=== PATIENT | female | born 1995 | race African-American/Black ===

== ENCOUNTER 2017-07-05 11:04 | Emergency (ER) | payer MEDICAID ==
[~2017-07-05] VITALS: Ht 162.6 cm; Wt 116.6 kg
[2017-07-05 11:07] VITALS: BP 129/83
[2017-07-05] MEDS ORDERED: LIDOCAINE 1%, 20ML ONE (11:21)
[2017-07-05] MEDS ORDERED: LIDOCAINE 1%, 20ML INFIL ONE (11:30)
[2017-07-05] MEDS ORDERED: BACITRACIN ZINC OINT 500U/GM, 0.9 GM ONE (12:44)
== END 2017-07-05 13:02 | disposition home or self-care (01) ==
LOC: ED 12:45
DX: L03.032 Cellulitis of left toe (principal)
CPT/HCPCS: 10060

== ENCOUNTER 2017-07-23 23:40 | Emergency (ER) | payer MEDICAID ==
[~2017-07-23] VITALS: Ht 162.6 cm; Wt 119.5 kg
[2017-07-23 23:42] VITALS: BP 138/85
[2017-07-24] MEDS ORDERED: CEPH-376 PO (00:19)
== END 2017-07-24 00:42 | disposition home or self-care (01) ==
LOC: ED 07-24 00:36
DX: L73.9 Follicular disorder, unspecified (principal)
CPT/HCPCS: 82962; 99283

== ENCOUNTER 2019-01-27 13:49 | Emergency (ER) | payer MEDICAID ==
[~2019-01-27] VITALS: Ht 162.6 cm; Wt 114.2 kg
[~2019-01-27 13:49] MED LIST: CEPH-376 PO
[2019-01-27 13:55] VITALS: BP 120/68
[2019-01-27 14:58] LABS: BASOPHILS # (AUTO) 0.03 x10^3/uL (0-0.1); BASOPHILS % (AUTO) 0 % (0-1); EOSINOPHILS # (AUTO) 0.09 x10^3/uL (0-0.4); EOSINOPHILS % (AUTO) 1 % (1-7); LYMPHOCYTES # (AUTO) 2.24 x10^3/uL (1-3.4); LYMPHOCYTES % (AUTO) 34 % (22-44); MD NO; MEAN CORPUSCULAR HEMOGLOBIN 27.1 pg (27.0-34.8); MEAN CORPUSCULAR VOLUME 84.6 fL (80-100); MEAN PLATELET VOLUME 8.2 fL (7.4-10.4); MONOCYTES # (AUTO) 0.33 x10^3/uL (0.2-0.8); MONOCYTES % (AUTO) 5 % (2-9); NEUTROPHILS # (AUTO) 3.89 x10^3/uL (1.8-6.8); NEUTROPHILS % (AUTO) 59 % (42-75); PLATELET COUNT 262 x10^3/uL (130-400); RED CELL DISTRIBUTION WIDTH 13.8 % (9.6-15.2)
[2019-01-27 15:11] LABS: ALBUMIN 3.7 g/dL (3.4-5.0); ANION GAP 5 mmol/L (5-15); CALCIUM 9.1 mg/dL (8.5-10.1); CHLORIDE 107 mmol/L (98-107); CREATININE 0.93 mg/dL (0.55-1.02)
--- NOTE | 2019-01-27 15:27 | NUR ---
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
[2019-01-27] MEDS ORDERED: ALBUTEROL/IPRATROPIUM 2.5MG/0.5MG, 3 ML NPPB SCH (15:30)
[2019-01-27] MEDS ORDERED: ALBUTEROL/IPRATROPIUM 2.5MG/0.5MG, 3 ML ONE ×2 (15:49)
--- NOTE | 2019-01-27 15:49 | NUR ---
MD ASSESSMENT COMPLETED AT THIS TIME. PT AMBULATED TO RESTROOM TO OBTAIN A URINE SAMPLE.
--- NOTE | 2019-01-27 16:04 | NUR ---
URINE WALKED TO LAB FOR ANALYSIS
[2019-01-27 16:41] LABS: MICROSCOPIC INDICATED
[2019-01-27 16:46] LABS: CULTURE INDICATED? YES
== END 2019-01-27 17:29 | disposition left against medical advice (07) ==
LOC: ED 17:10
DX: R10.30 Lower abdominal pain, unspecified (principal); N93.9 Abnormal uterine and vaginal bleeding, unspecified; F17.200 Nicotine dependence, unspecified, uncomplicated
CPT/HCPCS: 36415; 80048; 81001; 82040; 84703; 85025; 87086; 99283

== ENCOUNTER 2019-01-28 09:43 | Emergency (ER) | payer MEDICAID ==
[~2019-01-28] VITALS: Ht 162.6 cm; Wt 114.0 kg
--- NOTE | 2019-01-28 09:58 | NUR ---
PT AMBULATORY TO ROOM 15 W/ C/O PELVIC PAIN BILAT. PT STATES SHE THOUGHT SHE WAS BUT HAD NEGATIVE TEST. PT STATES SHE WAS SEEN HERE YESTERDAY BUT HAD TO LEAVE BEFORE BEING ABLE TO GET US COMPLETED. PT RESTING ON KERVIN. CORI. WARM BLANKET PROVIDED.
--- NOTE | 2019-01-28 11:05 | NUR ---
pt resting on gurney. nadn. butt.
[2019-01-28 11:07] LABS: MICROSCOPIC AUTO
[2019-01-28 11:09] LABS: CULTURE INDICATED? NO
--- NOTE | 2019-01-28 11:17 | NUR ---
PT CHART REVIEWED AND PLACED FOR RECHECK.
[2019-01-28] MEDS ORDERED: ONDANSETRON ODT 4 MG PO ONE (11:30)
[2019-01-28] MEDS ORDERED: KETOROLAC 30 MG/1 ML IM ONE (11:30)
[2019-01-28] MEDS ORDERED: HYDROmorphone 1 MG/ML, 1ML INJ IM PRN (11:30)
[2019-01-28] MEDS ORDERED: ONDANSETRON ODT 4 MG ONE (11:32)
[2019-01-28] MEDS ORDERED: KETOROLAC 30 MG/1 ML ONE (11:32)
--- NOTE | 2019-01-28 11:48 | NUR ---
PT TAKEN TO US IN STABLE CONDITION.
[2019-01-28 11:52] VITALS: BP 108/40
--- NOTE | 2019-01-28 12:51 | NUR ---
PT RESTING ON GURNEY. NADN. COTTON.
== END 2019-01-28 13:15 | disposition home or self-care (01) ==
LOC: ED 11:56
DX: R10.32 Left lower quadrant pain (principal); F17.200 Nicotine dependence, unspecified, uncomplicated
CPT/HCPCS: 74176; 76830; 81001; 99284; Q0162

== ENCOUNTER 2020-07-30 11:16 | Outpatient (CLI) | payer MEDICAID ==
[~2020-07-30] VITALS: Ht 162.6 cm; Wt 120.9 kg
[2020-07-30 12:00] LABS: BASOPHILS % (AUTO) 0 % (0-1); EOSINOPHILS % (AUTO) 1 % (1-7); LYMPHOCYTES % (AUTO) 25 % (22-44); MEAN CORPUSCULAR HEMOGLOBIN 27.3 pg (27.0-34.8); MEAN CORPUSCULAR HGB CONC 32.9 g/dL (32.4-35.8); MEAN PLATELET VOLUME 8.5 fL (7.4-10.4); MONOCYTES % (AUTO) 5 % (2-9); NEUTROPHILS % (AUTO) 69 % (42-75); PLATELET COUNT 213 x10^3/uL (130-400); RED BLOOD COUNT 3.89 x10^6/uL (3.82-5.3); RED CELL DISTRIBUTION WIDTH 13.1 % (9.6-15.2)
[2020-07-30 12:03] LABS: MD NO
[2020-07-30 12:09] LABS: ALANINE AMINOTRANSFERASE 20 U/L (12-78); ALBUMIN 2.6 g/dL (3.4-5.0); ANION GAP 6 mmol/L (5-15); CALCIUM 8.6 mg/dL (8.5-10.1); CHLORIDE 110 mmol/L (98-107); CREATININE 0.57 mg/dL (0.55-1.02)
[2020-07-30 12:10] LABS: MICROSCOPIC INDICATED
[2020-07-30 12:12] LABS: ALKALINE PHOSPHATASE 89 U/L (45-117); BILIRUBIN,TOTAL 0.2 mg/dL (0.2-1.0); TOTAL PROTEIN 6.2 g/dL (6.4-8.2)
[2020-07-30] MEDS ORDERED: PREN1TAB10 PO (13:32)
== END 2020-07-30 13:46 | disposition home or self-care (01) ==
LOC: LDOP 11:16
PROVIDERS: ATTEND Obstetrics & Gynecology Maternal & Fetal Medicine
DX: O26.892 Other specified pregnancy related conditions, second trimester (principal); R10.9 Unspecified abdominal pain; Z3A.27 27 weeks gestation of pregnancy
CPT/HCPCS: 36415; 76770; 80053; 81001; 85025; 87086; 99211; G0463

== ENCOUNTER 2020-10-21 12:47 | Outpatient (CLI) | payer MEDICAID ==
[~2020-10-21] VITALS: Ht 170.2 cm; Wt 125.0 kg
[~2020-10-21 12:47] MED LIST changes: +PREN1TAB10 PO
== END 2020-10-21 13:44 | disposition home or self-care (01) ==
LOC: LDOP 12:47
PROVIDERS: ATTEND Obstetrics & Gynecology Maternal & Fetal Medicine
DX: O26.893 Other specified pregnancy related conditions, third trimester (principal); R10.9 Unspecified abdominal pain; Z3A.39 39 weeks gestation of pregnancy
CPT/HCPCS: 59025

== ENCOUNTER 2020-10-26 09:09 | Inpatient (IN) | payer MEDICAID ==
[~2020-10-26] VITALS: Ht 162.6 cm; Wt 124.1 kg
[2020-10-26] MEDS ORDERED: CALCIUM CARBONATE 500 MG TAB.CHEW PO PRN (17:00)
[2020-10-26] MEDS ORDERED: FENTANYL PF 100 MCG/2ML IVPush PRN (17:00)
[2020-10-26] MEDS ORDERED: ONDANSETRON 2MG/ML, 2ML IVPush PRN (17:00)
[2020-10-26] MEDS ORDERED: TERBUTALINE 1 MG/ML, 1ML IVPush PRN (17:00)
[2020-10-26] MEDS ORDERED: OXYTOCIN 30U/ 0.9% NaCL 500ML 500 ML IV PRN (17:00)
[2020-10-26] MEDS ORDERED: FENTANYL PF 100 MCG/2ML IV PRN (17:00)
[2020-10-26] MEDS ORDERED: OXYTOCIN 30U/ 0.9% NaCL 500ML 500 ML IV ONE (17:00)
[2020-10-26] MEDS ORDERED: PLEASE ENTER HEIGHT AND WEIGHT MC SCH (17:00)
[2020-10-26] MEDS ORDERED: D5%-LACTATED RINGERS 1,000 ML IV SCH (17:00)
[2020-10-26] MEDS ORDERED: TERBUTALINE 1 MG/ML, 1ML SQ PRN (17:00)
[2020-10-26] MEDS ORDERED: PENICILLIN GK 5,000,000 UNITS in DEXTROSE 5% 100 ML IVPB ONE (17:00)
[2020-10-26] MEDS ORDERED: LACTATED RINGERS 1,000 ML IV SCH ×2 (17:00→19:30)
[2020-10-26 17:11] LABS: BASOPHILS % (AUTO) 0 % (0-1); EOSINOPHILS % (AUTO) 1 % (1-7); LYMPHOCYTES % (AUTO) 26 % (22-44); MEAN CORPUSCULAR HEMOGLOBIN 26.7 pg (27.0-34.8); MEAN CORPUSCULAR HGB CONC 32.7 g/dL (32.4-35.8); MEAN PLATELET VOLUME 9.3 fL (7.4-10.4); MONOCYTES % (AUTO) 8 % (2-9); NEUTROPHILS % (AUTO) 65 % (42-75); PLATELET COUNT 183 x10^3/uL (130-400); RED BLOOD COUNT 4.35 x10^6/uL (3.82-5.3); RED CELL DISTRIBUTION WIDTH 14.7 % (9.6-15.2)
[2020-10-26 17:13] LABS: MD NO
[2020-10-26] MEDS ORDERED: NEWBORN KIT ONE (18:51)
[2020-10-26] MEDS ORDERED: FENTANYL/BUPIV./NS/PF 250 ML EPIDCONT ONE (19:07)
[2020-10-26] MEDS ORDERED: BUPIVACAINE 0.25% ONE (19:07)
[2020-10-26] MEDS ORDERED: FENTANYL/BUPIV./NS/PF 250 ML EPIDCONT SCH (19:30)
[2020-10-26] MEDS ORDERED: EPHEDRINE 50 MG/ML, 1ML IVPush PRN (19:30)
[2020-10-26] MEDS ORDERED: LACTATED RINGERS 1,000 ML IVBOLUS PRN (19:30)
[2020-10-26] MEDS ORDERED: PENICILLIN GK 2,500,000 UNITS in DEXTROSE 5% 100 ML IVPB SCH (21:00)
[2020-10-27] MEDS ORDERED: MISOPROSTOL 200 MCG TABLET ONE (00:50)
[2020-10-27] MEDS ORDERED: LIDOCAINE 1%, 20ML ONE (00:50)
[2020-10-27] MEDS ORDERED: MISOPROSTOL 200 MCG TABLET PR PRN (02:30)
[2020-10-27] MEDS ORDERED: OXYcodone/APAP 5/325MG TABLET PO PRN (02:30)
[2020-10-27] MEDS ORDERED: BISACODYL 10 MG SUPP PR PRN (02:30)
[2020-10-27] MEDS ORDERED: ACETAMINOPHEN 325 MG TABLET PO PRN (02:30)
[2020-10-27] MEDS ORDERED: SIMETHICONE 80 MG CHEW TAB PO PRN (02:30)
[2020-10-27] MEDS ORDERED: METHYLERGONOVINE 0.2 MG/ML IM PRN (02:30)
[2020-10-27] MEDS ORDERED: ONDANSETRON 2MG/ML, 2ML IV PRN (02:30)
[2020-10-27] MEDS: OXYTOCIN 30U/ 0.9% NaCL 500ML 500 ML IV SCH ×3 (02:30→22:30)
[2020-10-27] MEDS ORDERED: CARBOPROST TROMETHAMINE 250 MCG/ML, 1ML IM PRN (02:30)
[2020-10-27] MEDS ORDERED: OXYcodone IR 5MG TABLET PO PRN (02:30)
[2020-10-27 03:55] VITALS: BP 130/84
[2020-10-27] MEDS: PRENATAL VIT/IRON/FA 1 EACH TABLET PO SCH (07:52)
[2020-10-27] MEDS: DOCUSATE 100 MG CAPSULE PO PRN ×2 (07:52→19:00)
[2020-10-27 08:00] VITALS: BP 116/70
[2020-10-27 09:56] LABS: BASOPHILS % (AUTO) 0 % (0-1); EOSINOPHILS % (AUTO) 0 % (1-7); LYMPHOCYTES % (AUTO) 18 % (22-44); MEAN CORPUSCULAR HEMOGLOBIN 26.3 pg (27.0-34.8); MEAN CORPUSCULAR HGB CONC 32.6 g/dL (32.4-35.8); MEAN PLATELET VOLUME 9.1 fL (7.4-10.4); MONOCYTES % (AUTO) 7 % (2-9); NEUTROPHILS % (AUTO) 75 % (42-75); PLATELET COUNT 155 x10^3/uL (130-400); RED CELL DISTRIBUTION WIDTH 14.3 % (9.6-15.2)
[2020-10-27 09:58] LABS: MD NO
[2020-10-27 12:50] VITALS: BP 124/75
[2020-10-27 15:55] VITALS: BP 131/71
[2020-10-27] MEDS: IBUPROFEN 600 MG TABLET PO PRN (19:00)
[2020-10-27 19:35] VITALS: BP 102/64
[2020-10-28 00:15] VITALS: BP 117/69
[2020-10-28 07:30] VITALS: BP 116/65
[2020-10-28] MEDS: IBUPROFEN 600 MG TABLET PO PRN ×2 (07:43→14:48)
[2020-10-28] MEDS: DOCUSATE 100 MG CAPSULE PO PRN (07:43)
[2020-10-28] MEDS: PRENATAL VIT/IRON/FA 1 EACH TABLET PO SCH (07:43)
[2020-10-28] MEDS: OXYTOCIN 30U/ 0.9% NaCL 500ML 500 ML IV SCH ×2 (08:30→14:07)
[2020-10-28] MEDS ORDERED: IBUP-1222 PO (14:06)
[2020-10-28] MEDS ORDERED: DOCU-131 PO (14:06)
[2020-10-28 19:25] VITALS: BP 118/78
== END 2020-10-28 20:00 | disposition home or self-care (01) | DRG 807 ==
LOC: LDIP 15:51 → 2NW 10-27 03:30
PROVIDERS: ADMIT Obstetrics & Gynecology Maternal & Fetal Medicine; ATTEND Obstetrics & Gynecology Maternal & Fetal Medicine
PROC: 10E0XZZ Delivery of Products of Conception, External Approach (ICD-10-PCS; principal; 2020-10-27)
PROC: 10907ZC Drainage of Amniotic Fluid, Therapeutic from Products of Conception, Via Natural or Artificial Opening (ICD-10-PCS; 2020-10-27)
PROC: 3E0R3BZ Introduction of Anesthetic Agent into Spinal Canal, Percutaneous Approach (ICD-10-PCS; 2020-10-27)
PROC: 00HU33Z Insertion of Infusion Device into Spinal Canal, Percutaneous Approach (ICD-10-PCS; 2020-10-27)
PROC: 3E033VJ Introduction of Other Hormone into Peripheral Vein, Percutaneous Approach (ICD-10-PCS; 2020-10-27)
DX: O99.824 Streptococcus B carrier state complicating childbirth (principal); Z37.0 Single live birth; O99.52 Diseases of the respiratory system complicating childbirth; J45.909 Unspecified asthma, uncomplicated; O69.81X0 Labor and delivery complicated by cord around neck, without compression, not applicable or unspecified; Z20.822 Contact with and (suspected) exposure to COVID-19; F32.9 Major depressive disorder, single episode, unspecified; F41.9 Anxiety disorder, unspecified; O99.344 Other mental disorders complicating childbirth; O99.214 Obesity complicating childbirth; E66.9 Obesity, unspecified; Z3A.39 39 weeks gestation of pregnancy; Z91.018 Allergy to other foods; Z90.49 Acquired absence of other specified parts of digestive tract
CPT/HCPCS: 36415; 85025; 86592; 86850; 86900; 87635; G0378; J2540; J2590; J7120